=== PATIENT | female | born 1955 | race Two or more races ===

== ENCOUNTER → 2020-12-19 08:00 | Outpatient (CLI) | payer OTHER | END | disposition home or self-care (01) | LOC: LAB 08:00 → ADM 13:45 → EDSTATUS 12-26 13:45 → AMB-ENDOS 12-26 13:45 | PROVIDERS: ATTEND Surgery | DX: K57.30 Diverticulosis of large intestine without perforation or abscess without bleeding (principal); D12.3 Benign neoplasm of transverse colon; Z03.818 Encounter for observation for suspected exposure to other biological agents ruled out; Z20.822 Contact with and (suspected) exposure to COVID-19 ==

== ENCOUNTER 2021-05-29 07:03 | Day surgery (SDC) | payer OTHER | END 2021-05-29 13:45 | disposition home or self-care (01) | LOC: AMB-ENDOS 07:03 | PROVIDERS: ATTEND Surgery | DX: D12.3 Benign neoplasm of transverse colon (principal); K62.1 Rectal polyp; Z20.822 Contact with and (suspected) exposure to COVID-19 ==